=== PATIENT | male | born 1990 | race Caucasian/White ===

== ENCOUNTER 2021-02-17 10:29 | Emergency (ER) | payer OTHER ==
[~2021-02-17] VITALS: Ht 180.3 cm; Wt 82.3 kg
[2021-02-17] MEDS ORDERED: INSLAN SQ (10:35)
[2021-02-17 12:16] VITALS: BP 124/74
== END 2021-02-17 12:48 | disposition home or self-care (01) ==
LOC: EMS 10:35
DX: S00.03XA Contusion of scalp, initial encounter (principal); E11.9 Type 2 diabetes mellitus without complications; Z79.4 Long term (current) use of insulin; W01.198A Fall on same level from slipping, tripping and stumbling with subsequent striking against other object, initial encounter; Y93.89 Activity, other specified; Y92.89 Other specified places as the place of occurrence of the external cause; Y99.8 Other external cause status
CPT/HCPCS: 70450; 99284

== ENCOUNTER 2021-03-01 14:40 | Emergency (ER) | payer OTHER ==
[~2021-03-01] VITALS: Ht 180.3 cm; Wt 95.0 kg
[~2021-03-01 14:40] MED LIST: INSLAN SQ
[2021-03-01 14:44] VITALS: BP 127/81
== END 2021-03-01 15:25 | disposition home or self-care (01) ==
LOC: EMS 14:40
DX: J06.9 Acute upper respiratory infection, unspecified (principal)
CPT/HCPCS: 99282; Z7502